=== PATIENT | female | born 1985 | race African-American/Black ===

== ENCOUNTER 2018-06-19 12:02 | Outpatient (CLI) | payer OTHER ==
[2018-06-19 12:27] LABS: MEAN CORPUSCULAR HEMOGLOBIN 26.4 pg (28.0-34.0)
[2018-06-19 12:57] LABS: eGFR (Non-African) > 60
[2018-06-19 16:56] LABS: IRON SERUM 52 ug/dL (37-145); SERUM IRON 52 ug/dL (37-145)
== END 2018-06-19 12:07 | disposition home or self-care (01) ==
LOC: LAB 12:02
PROVIDERS: ATTEND Family Medicine
DX: Z00.00 Encounter for general adult medical examination without abnormal findings (principal); D50.9 Iron deficiency anemia, unspecified
CPT/HCPCS: 36415; 80053; 80061; 83036; 83540; 83550; 85027